=== PATIENT | female | born 1930 | race African-American/Black ===

== ENCOUNTER 2018-01-23 14:34 | Emergency (ER) | payer MEDICARE, MEDICAID ==
[~2018-01-23] VITALS: Ht 157.5 cm; Wt 68.7 kg
[2018-01-23 16:01] LABS: HEMOGLOBIN 12.1 g/dL (12.0-16.0); MEAN CORPUSCULAR VOLUME 97.6 fL (81.0-99.0); PLATELET 195 x1000/uL (130-400); RED BLOOD CELL COUNT 3.79 mill/uL (4.2-5.4); RED CELL DISTRIBUTION WIDTH 13.4 % (11.6-14.6)
[2018-01-23 17:08] VITALS: BP 156/72
== END 2018-01-23 17:08 | disposition home or self-care (01) ==
LOC: ER 15:20
DX: R19.7 Diarrhea, unspecified (principal); I10 Essential (primary) hypertension; Z88.0 Allergy status to penicillin; Z88.2 Allergy status to sulfonamides
CPT/HCPCS: 36415; 80048; 85027; 99284